=== PATIENT | male | born 1990 | race Caucasian/White ===

== ENCOUNTER 2020-03-23 08:02 | Inpatient (IN) ==
[2020-03-23] MEDS ORDERED: Ondansetron 4 mg VIAL 2 MG/ML 2 ml VIAL IV ONE (08:13)
[2020-03-23] MEDS ORDERED: NS 0.9% 1000 ml BAG 1,000 ML IV ONE (08:13)
[2020-03-23] MEDS ORDERED: Potassium Chlor 20 meq TAB.ER PO ONE (10:49)
[2020-03-23 12:17] LABS: Albumin 4.2 g/dL (3.2-5.2); Albumin/Globulin Ratio 1.7 (1-3); BUN/Creatinine Ratio 24.3 (8-20); Calcium 8.2 mg/dL (8.6-10.3); EGFR African American 151.3 (>60); Globulin 2.5 g/dL (2-4); Potassium 4.1 mmol/L (3.5-5.0); Total Bilirubin 0.8 mg/dL (0.2-1.0); Total Protein 6.7 g/dL (6.4-8.9)
[2020-03-23] MEDS ORDERED: Al Hydrox/Mg Hydrox/Simet LIQ 30 ML UDC PO PRN (15:41)
[2020-03-23] MEDS ORDERED: Nicotine GUM 2MG FRUIT FLAVOR PO PRN (17:02)
[2020-03-24] MEDS ORDERED: Nicotine PATCH 14 MG/24 HR PATCH TRANSDERM SCH (09:00)
[2020-03-24 21:17] VITALS: BP 145/50
[2020-03-25] MEDS ORDERED: Lisdexamfetamine 10 mg CAP(NF) PO SCH (09:00)
== END 2020-03-25 10:14 | disposition home or self-care (01) | DRG 751 ==
LOC: ED 08:02 → BSU 15:41
PROVIDERS: ADMIT Psychiatry & Neurology Psychiatry; ATTEND Psychiatry & Neurology Psychiatry